=== PATIENT | male | born 1950 | race Caucasian/White ===

== ENCOUNTER 2019-08-04 04:52 | Inpatient (IN) ==
[2019-07-30 11:27] LABS: Appearance,Urine CLEAR; Bacteria,Urine 0 /hpf (0); Bilirubin,Urine NEG (NEG); Color,Urine YELLOW; Culture Indicated,Urine NO; Glucose,Urine (UA) NEGATIVE (NEG); Ketones,Urine NEG (NEG); Leukocyte Esterase,Urine NEG /uL (NEG); Mucus,Urine FEW /hpf (0); Nitrate,Urine NEG (NEG); Protein,Urine NEG (NEG); Urine Blood 0.2 mg/dL (<0.03); Urine RBC 2 /hpf (0-1); Urine Squamous Epithelial Cell 0 /hpf (0-4); Urine WBC 0 /hpf (0-4); Urobilinogen,Urine NEG (NEG)
[2019-07-30 12:25] LABS: Blood Urea Nitrogen 15 mg/dl (8-23); Calcium 9.2 mg/dl (8.6-10.4); Carbon Dioxide 27 mmol/L (22-30); Chloride 103 mmol/L (96-108); Glomerular Filtration Rate 86; Glucose 117 mg/dL (70-105)
[2019-07-30 12:29] LABS: Basophils # (Auto) 0 K/mcL (0.0-0.3); Basophils % (Auto) 0.3 % (0.0-2.0); Eosinophils # (Auto) 0.3 K/mcL (0.0-0.7); Eosinophils % (Auto) 4.1 % (0.0-7.0); Granulocytes % (Auto) 71.9 % (38.0-78.0); Hematocrit 41.8 % (41.0-55.0); Hemoglobin 14.1 g/dL (13.5-16.5); Lymphocytes # (Auto) 1.1 K/mcL (1.5-4.8); Lymphocytes % (Auto) 17.7 % (15.5-49.0); Mean Cell Volume 99.4 fL (80.0-100.0); Mean Corpuscular HGB Conc 33.7 g/dL (31.0-36.0); Mean Platelet Volume 8.2 fL (7.4-10.4); Monocytes # (Auto) 0.4 K/mcL (0.1-0.9); Platelet Count 155 K/mcL (140-440); Red Cell Distribution Width 13.3 % (11.5-14.5); WBC 6.4 K/mcL (4.5-11.0)
[2019-07-30 12:36] LABS: Estimated Average Glucose(eAG) 126 mg/dL
[2019-08-04] MEDS ORDERED: IPRATROPIUM/ALBUTEROL 3 ML AMPUL.NEB NEB PRN ×2 (05:00→08:52)
[2019-08-04] MEDS ORDERED: SCOPOLAMINE 1 PATCH PATCH TOPICAL PRN (05:00)
[2019-08-04] MEDS ORDERED: ceFAZolin 2 GM in DEXTROSE 5% IN WATER 50 ML IV SCH (06:00)
[2019-08-04] MEDS ORDERED: CELECOXIB 200 MG CAPSULE PO SCH (06:00)
[2019-08-04] MEDS ORDERED: oxyCODONE 10 MG TAB.ER.12H PO SCH (06:00)
[2019-08-04] MEDS ORDERED: PREGABALIN 75 MG CAPSULE PO SCH (06:00)
[2019-08-04] MEDS ORDERED: GLYCOPYRROLATE 0.2 MG/ML VIAL IV ONE (07:40)
[2019-08-04] MEDS ORDERED: ONDANSETRON 4 MG/2 ML VIAL IV ONE (07:40)
[2019-08-04] MEDS ORDERED: PHENYLEPHRINE 10 MG/ML VIAL IV ONE (07:40)
[2019-08-04] MEDS ORDERED: PROPOFOL 200 MG/20 ML VIAL IV ONE (07:40)
[2019-08-04] MEDS ORDERED: ePHEDrine 50 MG/ML AMPUL IV ONE (07:40)
[2019-08-04] MEDS ORDERED: LIDOCAINE HCL/PF 100 MG/5 ML SYRINGE IV ONE (07:40)
[2019-08-04] MEDS ORDERED: DEXAMETHASONE 10 MG/ML VIAL IV ONE (07:40)
[2019-08-04] MEDS ORDERED: KETAMINE 100 MG/ML ML IV ONE (07:40)
[2019-08-04] MEDS ORDERED: TRANEXAMIC ACID 1,000 MG/10 ML VIAL IV ONE (07:40)
[2019-08-04] MEDS ORDERED: MEPERIDINE 25 MG/ML SYRINGE IV PRN (08:52)
[2019-08-04] MEDS ORDERED: PROMETHAZINE 25 MG/ML VIAL IV PRN (08:52)
[2019-08-04] MEDS ORDERED: fentaNYL 100 MCG/2 ML VIAL IV PRN (08:52)
[2019-08-04] MEDS ORDERED: ONDANSETRON 4 MG/2 ML VIAL IV PRN ×2 (08:52→09:27)
[2019-08-04] MEDS ORDERED: LACTATED RINGERS 250 ML IV PRN (08:52)
[2019-08-04] MEDS ORDERED: BENZOCAINE/MENTHOL 1 LOZENGE PO PRN ×2 (08:52→09:27)
[2019-08-04] MEDS ORDERED: FLUMAZENIL 0.1 MG/ML ML IV PRN (08:52)
[2019-08-04] MEDS ORDERED: diphenhydrAMINE 50 MG/ML VIAL IV PRN (08:52)
[2019-08-04] MEDS ORDERED: NALOXONE HCL 0.4 MG/ML VIAL IV PRN (08:52)
[2019-08-04] MEDS ORDERED: ACETAMINOPHEN 1,000 MG/100 ML BOTTLE IV ONE (08:52)
[2019-08-04] MEDS ORDERED: LACTATED RINGERS 1,000 ML IV SCH (09:00)
[2019-08-04] MEDS ORDERED: BISACODYL 10 MG SUPP.RECT PR PRN (09:27)
[2019-08-04] MEDS ORDERED: FLEETS ADULT ENEMA PR PRN (09:27)
[2019-08-04] MEDS ORDERED: TRANEXAMIC ACID 1,000 MG/10 ML VIAL IV SCH (09:27)
[2019-08-04] MEDS ORDERED: POLYETHYLENE GLYCOL 3350 17 GM PACKET PO PRN (09:27)
[2019-08-04] MEDS ORDERED: MAGNESIUM HYDROXIDE 30 ML ORAL.SUSP PO PRN (09:27)
--- NOTE | 2019-08-04 09:27 | Brief Operative Note ---
Date of procedure: 08/04/19 Pre-op diagnosis: R hip severe DJD Post-op diagnosis: same Procedure: Right anterior total hip arthroplasty Grafts/Implants: Yes (Depuy Actis 7 std stem, 1.5 36 delta head, 54 cup, neutral liner) Anesthesia: spinal, GLMA Findings: severe arthritis Complications: none Surgeon: Keyon Wilder Dredge Pipe Operator: Rhett Andrea Estimated blood loss (cc): 300 Specimens Removed/Pathology: none sent Condition: stable Disposition: PACU
[2019-08-04] MEDS ORDERED: NITROGLYCERIN 0.4 MG TAB.SUBL SL PRN (09:30)
--- NOTE | 2019-08-04 09:48 | Operative Note ---
DATE OF OPERATION: 08/04/2019 PREOPERATIVE DIAGNOSIS: Right hip severe osteoarthritis. POSTOPERATIVE DIAGNOSIS: Right hip severe osteoarthritis. PROCEDURE PERFORMED: Right anterior total hip arthroplasty placing a DePuy Actis size 7 standard offset femoral stem; a +1.5, 36 mm delta ceramic head ball; a 54 Buena cup with a neutral Altrx liner. SURGEON: Keyon Wiledr M.D. CUSTOMER TECHNICAL SERVICES MANAGER: Ronak Andrea PA-C. The PA's assistance was required for the safe and efficient completion of the entire case. This provider's expertise and technical skill were required throughout the case. The PA assisted with preoperative coordination, intraoperative retraction, wound closure, dressing and splint application, as well as postoperative documentation and care coordination. ANESTHESIA: Spinal plus general. DRAINS: None. SPECIMENS: Femoral head which was discarded. BLOOD LOSS: 300 mL. COMPLICATIONS: None. POSTOPERATIVE CONDITION: Stable. INDICATIONS FOR SURGERY: This is a 69-year-old male who has had longstanding, progressive worsening right hip pain. Radiographs showed advanced arthrosis. FINDINGS AT SURGERY: Severe arthritis. Post implantation showed satisfactory component position with orthodox of leg length and offset. PROCEDURE IN DETAIL: The patient had been seen preoperatively. Informed consent obtained after discussion of risks and benefits of surgery. Risks including, but not limited to, bleeding; infection; injury to nerves, blood vessels, and other surrounding structures; anesthetic risks; incomplete or no resolution of symptoms; leg length discrepancy; dislocation; fracture; DVT and pulmonary embolus risks; and the possibility of needing further revision joint surgery. The patient understood these risks and wished to proceed. Correct operative site was marked and then spinal anesthesia given. The patient was then taken to the operating room and LMA general given. The patient was carefully transferred to the fracture table and then the operative hip was carefully prepped and draped in normal sterile fashion. Timeout was performed verifying patient name, operative site, and plan. Ioban was used to cover all skin surfaces. A standard anterior approach incision was made with a scalpel through skin and subcutaneous tissue. Hemostasis was obtained with Bovie cautery. Careful blunt dissection was taken down on the tensor fascia and then this was undermined circumferentially. IrriSept was irrigated and a ring retractor placed. Tensor fascia was incised in line with muscle fibers and then careful blunt dissection taken medial to the muscle belly. Blunt cobra retractors were placed on the superior and inferior femoral neck and then circumflex vessels were coagulated and cut and vastus fascia split distally. Anterior capsulectomy was performed and then the capsule releases. Corkscrew was placed in the femoral head. Prior to placement of the corkscrew we did take x-rays for joint point. Once a corkscrew was placed we used fluoroscopy to identify our approximate neck cut trajectory and then our femoral neck was cut with oscillating tip saw. Femoral head was removed and the acetabulum exposed. Labrum was excised circumferentially as well as soft tissue from the floor. We then irrigated with IrriSept. We then began sequentially reaming until 1 mm smaller than the final implant. We then opened the acetabular component. IrriSept was irrigated, after a minute pulse lavaged with saline and then the cup was impacted using the [id number]. Joint point was used to verify satisfactory cup position. A center hole cover was placed and then the acetabular liner was carefully aligned and impacted and carefully verified to be fully seated. We then released traction. The leg was externally rotated and released capsule around the medial neck. The leg was then extended and adducted. Capsule was released out towards greater trochanter and then the proximal femur was exposed. Box osteotome was used to gain canal entry and an awl was used to identify canal trajectory. Rongeur and rasp were used to lateralize and then we began sequentially broaching up to the final size. We calcar planed down onto the broach and then the neck trial and head ball were placed. The hip was reduced. Fluoro was brought in and x-rays taken, joint point was used to verify satisfactory position. We then re-dislocated and removed the trial implants. Definitive implants were opened. We then irrigated the femoral canal with IrriSept again, after a minute pulse lavaged with saline. The final stem was impacted and seated. We then opened the head ball. The stem was carefully cleaned and dried and the head ball was impacted. We then reduced the hip with satisfactory tension. Final fluoro images were taken and saved. We irrigated the joint with IrriSept, after a minute pulse lavaged with saline again and then closed the tensor fascia with two running #1 Vicryls, one running proximal, one running distal and a ring retractor was removed. Final IrriSept irrigation was done, after a minute final pulse lavage, and then fat was tacked to fascia with Vicryl and then 2-0 Monocryl for subcutaneous and edmundo for skin. Xeroform and sterile dressing were applied. The patient was then awakened, extubated, and transferred to recovery in stable condition. DEO:lilian Job ID: [id number] Doc ID: [id number] Keyon Wilder MD
[2019-08-04] MEDS: KETOROLAC 15 MG/ML VIAL IV PRN ×2 (10:24→17:25)
[2019-08-04] MEDS: 0.9 % SODIUM CHLORIDE 1,000 ML IV SCH ×2 (10:58→21:11)
--- NOTE | 2019-08-04 11:40 | XRay Report ---
CLINICAL INFORMATION: Post-op Total Hip COMPARISON: None. FINDINGS: Right total hip prostheses is anatomically aligned. There is mild degenerative change both SI and left joint. No osseous abnormality. Soft tissue swelling as expected IMPRESSION: Negative Interpreted and Authenticated by: Brad Palmer 08/04/19
[2019-08-04] MEDS: HYDROmorphone 2 MG/ML VIAL IV PRN ×2 (12:00→21:09)
--- NOTE | 2019-08-04 13:42 | XRay Report ---
CLINICAL INFORMATION: RIGHT ANTERIOR TOTAL HIP COMPARISON: None. FINDINGS: Multiple digital images are submitted from the OR. Final images show right total hip prostheses is anatomically aligned. No osseous abnormality. Soft tissue swelling - as expected IMPRESSION: Right total hip prostheses is anatomically aligned. Interpreted and Authenticated by: Brad Palmer 08/04/19
[2019-08-04] MEDS: HYDROCODONE/APAP 7.5/325MG TABLET PO PRN ×2 (14:21→19:02)
[2019-08-04] MEDS: ceFAZolin 1 GM VIAL IV SCH (14:21)
[2019-08-04] MEDS: 0.9 % SODIUM CHLORIDE 10 ML SYRINGE IV SCH ×2 (14:30→22:37)
[2019-08-04] MEDS ORDERED: CYCLOBENZAPRINE 10 MG TABLET PO PRN (21:00)
[2019-08-04] MEDS ORDERED: SENNOSIDES 1 TABLET PO SCH (21:00)
[2019-08-04] MEDS: busPIRone 5 MG TABLET PO SCH (21:10)
[2019-08-04] MEDS: DOCUSATE SODIUM 100 MG CAPSULE PO SCH (21:11)
[2019-08-04] MEDS: ASPIRIN 81 MG TAB.CHEW PO SCH (21:11)
[2019-08-05] MEDS: HYDROCODONE/APAP 7.5/325MG TABLET PO PRN ×4 (00:03→12:03)
[2019-08-05] MEDS: ceFAZolin 1 GM VIAL IV SCH (00:04)
[2019-08-05] MEDS: KETOROLAC 15 MG/ML VIAL IV PRN (00:04)
[2019-08-05] MEDS: 0.9 % SODIUM CHLORIDE 1,000 ML IV SCH ×2 (04:20→09:47)
[2019-08-05] MEDS: 0.9 % SODIUM CHLORIDE 10 ML SYRINGE IV SCH (05:44)
--- NOTE | 2019-08-05 07:55 | Discharge Summary ---
Providers - Providers Patient information: Note initiated : 08/05/19 at 7:52 am Service Date, if different from initiated Date: [] Patient: Shawn Boyle 69 y/o M admitted on 08/04/19 for Right Total Hip Arthroplasty Anterior. Chief Complaint: [] Discharge date: 08/05/19 Hospitalization Hospital Course: Pt was admitted for a R total hip arthroplasty. Pt underwent the procedure on the day of admission. Pt was transferred to the floor for IV pain meds, IV abx and PT. Pt will attend out-pt PT. Will take ASA for DVT prophylaxis. F/u in 2 weeks. Discharge diagnosis: R hip OA Exam - Exam Clean and dry: Yes Weight bearing status: as tolerated Ortho Discharge - SEN - Patient Instructions Diet: Regular Diet Activity: weight bearing as tolerated Total Hip Protocol: Follow activity instructions as provided by Physical Therapy. Dressing Care: May shower in 2 days - Follow Up Plan Disposition: Home, Self-Care Prognosis: Good Rehab Potential: Good Overall status at discharge: patient is progressing back to baseline - Orders For Discharge Prescriptions: Aspirin 81 mg PO BID #60 tab.chew Transmission Status: Pending to [facility] #[id number] Hydrocodone/APAP 7.5/325Mg [[place] 7.5-325Mg] 1 - 2 tab PO Q4HP PRN #80 tab PRN Reason: Pain Level 3-6 Prescription Printed Pending Studies Resuscitation Status Full Code Diet Regular Diet Start FriAug 04 929 Hydrocodone Bitart/Acetaminophen ([place] 7.5/325mg) 0 tab PO Q4HP PRN PRN Reason: PAIN LEVEL 3-6 Last Admin: 08/05/19 04:34 Dose: 2 tab Documented by: Admin: 08/05/19 00:03 Dose: 2 tab Documented by: Admin: 08/04/19 19:02 Dose: 2 tab Documented by: Admin: 08/04/19 14:21 Dose: 2 tab Documented by: VENTURA Aspirin (Aspirin) 81 mg PO BID [facility] Last Admin: 08/04/19 21:11 Dose: 81 mg Documented by: ROSA Buspirone HCl (Buspar) 10 mg PO BID [facility] Last Admin: 08/04/19 21:10 Dose: 10 mg Documented by: ROSA Cyclobenzaprine HCl (Flexeril) 5 mg PO HSP PRN PRN Reason: Muscle Spasm Last Admin: 08/04/19 21:10 Dose: 5 mg Documented by: ROSA Docusate Sodium (Colace) 100 mg PO BID [facility] Last Admin: 08/04/19 21:11 Dose: 100 mg Documented by: ROSA Hydromorphone HCl (Dilaudid) 0 mg IV Q2HP PRN PRN Reason: PAIN LEVEL > 6 Last Admin: 08/04/19 21:09 Dose: 2 mg Documented by: Admin: 08/04/19 12:00 Dose: 0.5 mg Documented by: VENTURA Sodium Chloride (Sodium Chloride 0.9%) 1,000 mls @ 125 mls/hr IV .Q8H [facility] Last Admin: 08/05/19 04:20 Dose: Not Given Documented by: Infusion: 08/05/19 04:10 Dose: 125 mls/hr Documented by: Admin: 08/04/19 21:11 Dose: 125 mls/hr Documented by: Infusion: 08/04/19 18:58 Dose: 125 mls/hr Documented by: Admin: 08/04/19 10:58 Dose: 125 mls/hr Documented by: VENTURA Ketorolac Tromethamine (Toradol) 15 mg IV Q6HP PRN PRN Reason: Pain Stop: 08/06/19 09:29 Last Admin: 08/05/19 00:04 Dose: 15 mg Documented by: Admin: 08/04/19 17:25 Dose: 15 mg Documented by: Admin: 08/04/19 10:24 Dose: 15 mg Documented by: LEXA Arrieta (Senokot) 2 tab PO HS [facility] Last Admin: 08/04/19 21:11 Dose: 2 tab Documented by: ROSA Sodium Chloride (Saline Flush) 10 ml IV Q8 [facility] Last Admin: 08/05/19 05:44 Dose: Not Given Documented by: Admin: 08/04/19 22:37 Dose: Not Given Documented by: Admin: 08/04/19 14:30 Dose: Not Given Documented by: VENTURA Shift Summary 08/05/19 04:58 Shift Summary by Cierra Lux The patient is alert and oriented times four, he ambulated once in the hallways with a FWW and 1 SBA with a gait belt and has a steady gait. He rated his pain at 8/10 at the start of shift and was given Hydrocodone 7.5/325 mg 2 tabs every 4 hours, Dilaudid once for breakthrough at 0000, Flexeril PO at HS, and Toradol PRN once. CMS intact, dressing CDI from a RTHA anterior approach, voiding quantity sufficient via urinal, tolerating regular diet with no nausea. IV SL 18 gauge to his left hand after he received his last dose of Ancef, plan is to discharge to home today with his spouse. Will update shift summary with bedside report. Initialized on 08/05/19 04:58 - END OF NOTE
[2019-08-05] MEDS: ASPIRIN 81 MG TAB.CHEW PO SCH (08:25)
[2019-08-05] MEDS: DOCUSATE SODIUM 100 MG CAPSULE PO SCH (08:25)
[2019-08-05] MEDS: busPIRone 5 MG TABLET PO SCH (08:25)
[2019-08-10] MEDS ORDERED: SIMVASTATIN 40 MG TABLET PO SCH (21:00)
== END 2019-08-05 12:05 | disposition home or self-care (01) | DRG 470 ==
LOC: MEDSUR 04:52
PROVIDERS: ADMIT Orthopaedic Surgery; ATTEND Orthopaedic Surgery